=== PATIENT | male | born 1990 | race Hispanic/Latino ===

== ENCOUNTER 2016-09-06 11:22 | Emergency (ER) | payer OTHER ==
[2016-09-06 11:27] VITALS: BMI 17.7
[2016-09-06] MEDS ORDERED: Sodium Chloride 0.9% 1,000 ML IV STA (11:44)
--- NOTE | 2016-09-06 11:48 | ED PDOC ---
Arrival/HPI - General Historian: Patient <Cathy Olivares - Last Filed: 09/06/16 13:09> <Jeremy Mackay DO - Last Filed: 09/06/16 13:14> - General Chief Complaint: Headache Time Seen by Provider: 09/06/16 11:24 - History of Present Illness Narrative History of Present Illness (Text): 09/06/16 11:43 26yo M w no significant past medical history presents with 2 week h/o green productive cough and 2 day h/o intermittent nose bleeds. Patient has 2yo and 4yo children, who were sick approx 2 weeks ago, illness has since resolved for the kids. Patient states he started having green productive cough 2 weeks ago, subjective fevers and chills x 1 day 2 weeks ago, which have not recurred. Started developing mild nose bleeds approx 2 days ago, worse with cough. Patient denies coughing any blood, states mucus is occasionally streaked with blood. Admits to chest congestion, mild shortness of breath, L ear pressure, mild dizziness x 1 day. Denies CP, abd pain, n/v/d/c, rashes. Patient recently moved to the area from [place]. Admits to active tobacco use, 1/2 ppd x 12 years , max 1ppd. (Cathy Olivares) Past Medical History - Provider Review Nursing Documentation Reviewed: Yes - Travel History Have you recently traveled outside [place] w/in the past 3 mons?: No - Psychiatric Hx Substance Use: Yes (marijuana) <Cathy Olivares - Last Filed: 09/06/16 13:09> Family/Social History - Physician Review Nursing Documentation Reviewed: Yes Family/Social History: Hypertension Smoking Status: Light Smoker < 10 Cigarettes Daily Hx Alcohol Use: No Hx Substance Use: Yes (marijuana) <Cathy Olivares - Last Filed: 09/06/16 13:09> Allergies/Home Meds <Cathy Olivares - Last Filed: 09/06/16 13:09> <Jeremy Mackay DO - Last Filed: 09/06/16 13:14> Allergies/Adverse Reactions: Allergies No Known Allergies Allergy (Verified 09/06/16 11:27) Review of Systems - Physician Review All systems were reviewed & negative as marked: Yes - Review of Systems Constitutional: Normal. absent: Fatigue, Fevers Eyes: absent: Vision Changes ENT: Sore Throat, Epistaxis, Sinus Congestion, Other (L ear fullness) Respiratory: Sputum (green, occasionally blood-streaked). absent: Wheezing Cardiovascular: VIZCARRA (mild). absent: Chest Pain, Palpitations, Edema, Calf Pain , Syncope Gastrointestinal: absent: Abdominal Pain, Constipation, Diarrhea, Nausea, Vomiting, Hematochezia, Hematemesis Genitourinary Male: absent: Dysuria, Frequency Musculoskeletal: absent: Back Pain, Neck Pain Skin: absent: Rash, Skin Lesions Neurological: Dizziness. absent: Headache Endocrine: absent: Diaphoresis, Polyuria, Polydipsia Hemo/Lymphatic: absent: Adenopathy, Easy Bleeding, Easy Bruising Psychiatric: absent: Anxiety, Depression <Cathy Olivares - Last Filed: 09/06/16 13:09> Physical Exam Vital Signs Reviewed: Yes Temperature: Afebrile Blood Pressure: Normal Pulse: Regular Respiratory Rate: Normal Appearance: Positive for: Well-Appearing, Non-Toxic, Comfortable Pain Distress: None Mental Status: Positive for: Alert and Oriented X 3 - Systems Exam Head: Present: Atraumatic, Normocephalic Pupils: Present: PERRL. No: Sluggish Extroacular Muscles: Present: EOMI Conjunctiva: Present: Normal. No: Injected, Icteric Ears: Present: Normal Canal, Fluid (Behind L TM). No: TM Perf Mouth: Present: Dry (midly) Pharnyx: Present: Normal, ERYTHEMA. No: EXUDATE, TONSILS ENLARGED (s/p tonsillectomy) Nose (External): Present: Atraumatic Nose (Internal): Present: No Active Bleeding, Engorged, Boggy Neck: Present: Normal Range of Motion. No: Meningeal Signs, JVD Respiratory/Chest: Present: Clear to Auscultation, Good Air Exchange. No: Respiratory Distress, Accessory Muscle Use, Wheezes, Rales, Rhonchi Cardiovascular: Present: Regular Rate and Rhythm, Normal S1, S2. No: Murmurs Abdomen: Present: Normal Bowel Sounds. No: Tenderness, Distention, Peritoneal Signs, Rebound, Guarding Upper Extremity: Present: Normal Inspection, NORMAL PULSES, Capillary Refill < 2s. No: Cyanosis, Edema Lower Extremity: Present: Normal Inspection, NORMAL PULSES. No: Edema, CALF TENDERNESS Neurological: Present: GCS=15, CN II-XII Intact, Speech Normal Skin: Present: Warm, Dry, Normal Color. No: Rashes Lymphatic: No: Cervical Adenopathy Psychiatric: Present: Alert, Oriented x 3, Normal Insight, Normal Concentration <Cathy Olivares - Last Filed: 09/06/16 13:09> Medical Decision Making - RAD Interpretation Electronics Mechanic: Radiologist <Cathy Olivares - Last Filed: 09/06/16 13:09> <Jeremy Mackay DO - Last Filed: 09/06/16 13:14> ED Course and Treatment: 09/06/16 11:56 26 yo M presents with upper resp symptoms and mild nose bleeds, no active bleeding, L ear fluid. CXR, labs, IVF. (Cathy Olivares) A 26 year old male with a productive cough and intermittent nose bleeds. In agreement with resident note, which includes further HPI details. Patient was seen and evaluated with resident, came up with plan and treatment together. (Jeremy Mackay DO) - Lab Interpretations Lab Results: 09/06/16 12:00 09/06/16 12:00 Lab Results 09/06/16 12:00: Sodium 141, Potassium 4.1, Chloride 100, Carbon Dioxide 28, Anion Gap 17, BUN 13, Creatinine 0.8, Est GFR ( Amer) > 60, Est GFR (Non- Af Amer) > 60, Random Glucose 80, Calcium 9.9, Total Bilirubin 0.8, AST 28, ALT 31, Alkaline Phosphatase 54, Total Protein 9.4 H, Albumin 5.1 H, Globulin 4.3, Albumin/Globulin Ratio 1.2 09/06/16 12:00: WBC 7.3, RBC 4.92, Hgb 15.0, Hct 43.0, MCV 87.4, MCH 30.5, MCHC 34.9, RDW 12.7, Plt Count 320, MPV 9.4, Gran % 66.4, Lymph % (Auto) 25.0, Armstrong % (Auto) 6.8 H, Eos % (Auto) 1.0 L, Baso % (Auto) 0.8, Gran # 4.86, Lymph # 1.8 , Armstrong # 0.5, Eos # 0.1, Baso # 0.06 - RAD Interpretation Narrative RAD Interpretations (Text): 09/06/16 13:10 CXR - No active disease (Cathy Olivares) Radiology Orders: 09/06/16 11:44 CHEST TWO VIEWS (PA/LAT) [RAD] Stat - Medication Orders Current Medication Orders: Discontinued Medications Sodium Chloride (Sodium Chloride 0.9%) 1,000 mls @ 999 mls/hr IV .Q1H1M STA Stop: 09/06/16 12:44 Last Admin: 09/06/16 12:01 Dose: 999 mls/hr <Cathy Olivares - Last Filed: 09/06/16 13:09> - PA / CORPORATE DEVELOPMENT OFFICER / Resident Statement / has reviewed & agrees with the documentation as recorded. / has examined the patient and agrees with the treatment plan. - Scribe Statement The provider has reviewed the documentation as recorded by the Scribe <Jeremy Mackay DO - Last Filed: 09/06/16 13:14> - Scribe Statement Annette Martinez Provider Scribe Attestation: All medical record entries made by the Scribe were at my direction and personally dictated by me. I have reviewed the chart and agree that the record accurately reflects my personal performance of the history, physical exam, medical decision making, and the department course for this patient. I have also personally directed, reviewed, and agree with the discharge instructions and disposition. (Jeremy Mackay DO) Disposition/Present on Arrival - Present on Arrival Any Indicators Present on Arrival: No History of DVT/PE: No History of Uncontrolled Diabetes: No Urinary Catheter: No History of Decub. Ulcer: No History Surgical Site Infection Following: None - Disposition Have Diagnosis and Disposition been Completed?: Yes Disposition Time: 11:58 Patient Plan: Discharge <Cathy Olivares - Last Filed: 09/06/16 13:09> <Jeremy Mackay DO - Last Filed: 09/06/16 13:14> - Disposition Diagnosis: Sinusitis Disposition: HOME/ ROUTINE Condition: STABLE Discharge Instructions (ExitCare): Nosebleed (ED), Upper Respiratory Infection (ED) Print Language: KINYARWANDA Additional Instructions: Please followup with your primary care physician with [facility] clinic within 1-3 days. Please obtain Nasal Saline OTC and keep your nasal mucosa moist twice daily, as instructed. Prescriptions: Azithromycin [Z-Carlos] 250 mg PO DAILY #6 tab Referrals: [facility] [Outside] - Follow up with primary
[2016-09-06 12:08] LABS: ADD MANUAL DIFF? NO
[2016-09-06 12:15] LABS: BASO # 0.06 K/mm3 (0.0-2.0); BASO % 0.8 % (0.0-3.0); EOS # 0.1 (0.0-0.7); GRAN # 4.86 (1.4-6.5); GRAN % 66.4 % (50.0-68.0); LYMPH # 1.8 (1.2-3.4); MEAN CELL VOLUME 87.4 fL (80.0-105.0); MEAN CORPUSCULAR HEMOGLOBIN 30.5 pg (25.0-35.0); MEAN CORPUSCULAR HGB CONC 34.9 g/dl (31.0-37.0); MEAN PLATELET VOLUME 9.4 fl (7.0-11.0); MONO # 0.5 (0.1-0.6); MONO % 6.8 % (1.0-6.0); PLATELET COUNT 320 10^3/uL (120.0-450.0); RED CELL DISTRIBUTION WIDTH 12.7 % (11.5-14.5); WHITE BLOOD COUNT 7.3 10^3/ul (4.5-11.0)
[2016-09-06 12:16] VITALS: O2SAT 99
[2016-09-06 12:23] LABS: ALB/GLOB RATIO 1.2 (1.1-1.8); ALKALINE PHOSPHATASE 54 U/L (38-133); ALT/SGPT 31 U/L (7-56); AST/SGOT 28 U/L (15-59); BILIRUBIN,TOTAL 0.8 mg/dL (0.2-1.3); BLOOD UREA NITROGEN 13 mg/dL (7-21); CALCIUM 9.9 mg/dL (8.4-10.5); CARBON DIOXIDE 28 mmol/L (21-33); CHLORIDE 100 mmol/L (98-107); GFR AFRICAN-AMERICAN > 60; GLUCOSE,RANDOM 80 mg/dL (70-110); POTASSIUM 4.1 mmol/L (3.6-5.0); SODIUM 141 mmol/L (132-148); TOTAL PROTEIN 9.4 g/dL (5.8-8.3)
--- NOTE | 2016-09-06 13:02 | RAD ---
HISTORY: cough - r/o infiltrate COMPARISON: No prior. TECHNIQUE: Chest PA and lateral FINDINGS: LUNGS: No active pulmonary disease. PLEURA: No significant pleural effusion identified. No pneumothorax apparent. CARDIOVASCULAR: Normal. OSSEOUS STRUCTURES: No significant abnormalities. VISUALIZED UPPER ABDOMEN: Normal. OTHER FINDINGS: None. IMPRESSION: No active disease.
[2016-09-06 13:25] VITALS: BP 113/65; PULSE 68; RESP 18; TEMP 98
== END 2016-09-06 13:34 | disposition home or self-care (01) ==
LOC: ED 11:22
DX: J32.9 Chronic sinusitis, unspecified (principal); F17.210 Nicotine dependence, cigarettes, uncomplicated
CPT/HCPCS: 71020; 80053; 85025; 99285; J7040